=== PATIENT | male | born 1945 | race Caucasian/White ===

== ENCOUNTER → 2018-07-04 | Outpatient (CLI) | payer MEDICARE, OTHER ==
[~2018-07-04] MED LIST: ATORVASTATIN CA40 MG PO; CLONIDINE0.1; COREG25 MG; CYTOTEC200 MCG; FLOMAX0.4 MG PO; GLUCOPHAGE XR750 MG; LEVOTHYROXIN0.137 M1 PO; LISINOPRIL20 MG; MULTIVITAMINS1 EAC7 PO; NEURONTIN 300300 M1; PROSCAR 5MG TABL5 MG PO
== END ==
LOC: M.RAD 14:50
DX: R07.9 Chest pain, unspecified (principal); R05 Cough; R06.02 Shortness of breath

== ENCOUNTER → 2018-10-25 | Outpatient (CLI) | payer MEDICARE, OTHER | LOC: M.RAD 07:30 | DX: M16.0 Bilateral primary osteoarthritis of hip (principal); M47.896 Other spondylosis, lumbar region ==

== ENCOUNTER → 2019-01-23 | Outpatient (CLI) | payer MEDICARE, OTHER | LOC: M.CT 07:32 | DX: M16.12 Unilateral primary osteoarthritis, left hip (principal); M85.452 Solitary bone cyst, left pelvis ==

== ENCOUNTER → 2019-02-01 | Outpatient (CLI) | payer MEDICARE, OTHER | END | disposition home or self-care (01) | LOC: M.RAD 08:29 | DX: M25.552 Pain in left hip (principal); Z79.899 Other long term (current) drug therapy ==

== ENCOUNTER 2019-04-03 11:18 | Inpatient (IN) | payer MEDICARE, OTHER ==
[2019-03-22 08:54] LABS: ABSOLUTE EOSINOPHILS 0.2 thou/uL (0.0-0.7); ABSOLUTE LYMPHOCYTES 2.2 thou/uL (0.8-5.3); ABSOLUTE MONOCYTES 0.5 thou/uL (0.0-1.2); ABSOLUTE NEUTROPHILS 3.7 thou/uL (1.6-8.1); BASOPHILS 0.5 %; EOSINOPHILS 2.8 %; HEMATOCRIT 36.7 % (42.0-52.0); HEMOGLOBIN 12.8 gm/dL (14.0-18.0); LYMPHOCYTES 33.2 %; MCH 32.5 pg (26.0-34.0); MCHC 34.8 g/dL (28.0-37.0); MCV 93.3 fL (80.0-100.0); MONOCYTES 7.3 %; MPV 9.7 fl. (7.2-11.1); NUCLEATED RBCS 0 /100WBC; PLATELET COUNT* 135 thou/uL (150-400); POLYS 56.2 %; RBC 3.94 mil/uL (4.50-6.00); RDW-CV 13.1 % (10.5-14.5); WBC 6.6 thou/uL (4.0-11.0)
[2019-03-22 09:04] LABS: APTT 23.1 Seconds (25.0-31.3); PROTIME 9.9 Seconds (9.20-11.50)
[2019-03-22 09:08] LABS: ALBUMIN 3.7 g/dL (3.4-5.0); CALCIUM 8.7 mg/dL (8.5-10.1); CREATININE 1.4 mg/dL (0.6-1.3); TOTAL BILIRUBIN 0.3 mg/dL (<0.1-1.0); TOTAL PROTEIN 6.9 g/dL (6.4-8.2)
[2019-03-22 11:05] LABS: ESR (SEDRATE) 20 mm/hr (0-20)
--- NOTE | 2019-03-22 12:10 | EKG ---
[place] [address] ELECTROCARDIOGRAM REPORT Name: SHUKRI BARR Room: PRE IN [facility]#: [id number] Admission: Attend Phys: Hany Rivera Discharge: Date of : 49 Report #: [id number] THIS REPORT FOR: //name// [facility] Test Date: 2019-03-22 Test Time: 09:23:07 Pat Name: SHUKRI BARR Department: Room: Gender: M Scrap Baller: : 1945 Requested By: Alejandro Sosa Order Number: [id number] Ramon SADLER: Jl Sanon Measurements Intervals [place] Rate: 68 P: 38 AR: 164 QRS: 59 QRSD: 99 T: 61 QT: 383 QTc: 408 Interpretive Statements Sinus rhythm Borderline low voltage, extremity leads Compared to ECG 05/25/2016 08:40:11 ST (T wave) deviation no longer present Electronically Signed On 03-22-2019 12:09:54 CDT by Jl Sanon [email or web address] <ELECTRONICALLY SIGNED> By: Jl Sanon MD, [facility] 03/22/19 1209 D: [id number] 2 Jl Sanon MD, FACC /EPI
[2019-03-23 02:06] LABS: GLYCOHEMOGLOBIN (HGB A1C) 6.9 % (4.8-5.6)
[~2019-04-03] VITALS: Ht 193 cm; Wt 122.5 kg
--- NOTE | ~2019-04-03 | OP ---
[address] [address] OPERATIVE REPORT Name: SHUKRI BARR Room: [address] IN .R.#: [id number] Admission: 04/03/19 Attend Phys: Hany Rivera Discharge: Date of : 49 Report #: [id number] THIS REPORT FOR: //name// CC: Alejandro Pruitt PREOPERATIVE DIAGNOSIS: Left hip degenerative joint disease, advanced. POSTOPERATIVE DIAGNOSIS: Left hip degenerative joint disease, advanced. PROCEDURE: Left total hip arthroplasty. SURGEON: Alejandro Sosa DO CAM MILLING MACHINE OPERATOR: Beto Nathan DO. ANESTHESIA: General. ANTIBIOTICS: Ancef IV preoperatively. BLOOD LOSS: 450 mL. FLUIDS: 1450 mL lactated Ringer's. COMPLICATIONS: None. SPECIMENS: None. DRAINS: None. CONDITION: The patient is stable to PACU. IMPLANTS: Biomet G7 acetabular shell 62 mm with 2 appropriately sized screws. A 40 mm high wall E1 polyethylene Taperloc stem micro 20 x 125 standard offset ceramic 40 mm head with -6 neck adapter. INDICATIONS FOR PROCEDURE: The patient presented to [facility] for left total hip arthroplasty, seen him multiple times in clinic. He had an x-ray and CT scan evidence of degenerative joint disease, had a diagnostic injection with lidocaine and confirmed that he had relief of pain upon that. I went over with him treatment options, plan for surgery. The risks, benefits, and complications in detail at multiple visits. Please see the clinic notes for full details of our discussion we had at multiple visits including today. After addressing questions he had to his stated satisfaction with his , he acknowledged and accepted them and gave consent to proceed. [address] [address] OPERATIVE REPORT Name: MOMOSHUKRI Seun Room: [address] IN [facility].#: [id number] Admission: 04/03/19 Attend Phys: Hany Rivera Discharge: Date of : 49 Report #: [id number] DESCRIPTION OF PROCEDURE: I marked the left lower extremity in the presence of the operative team members. Everyone agreed this was correct. He was taken back to the operative suite where a briefing was performed indicating correct patient, procedure, site, antibiotics and implants were present and sterile. All team members agreed. He was then transferred over to the operating table in supine position. General anesthetic administered. He was well-padded and secured. The left lower extremity was sterilely prepped and draped in standard fashion. Timeout was performed indicating correct patient, procedure, site, antibiotics and implants were present and sterile. All team members agreed. Marked out our incision for an anterior approach, scalpel was taken through skin, dissection down protecting any neurovascular structures with blunt dissection. We were then on to the fascia. A secondary scalpel was used to incise this proximally and distally bluntly and identified the interval between sartorius and tensor fascia chicho, visualized the circumflex, vessels perforating, cauterized them with Aquamantys and cautery. Retractors were placed on the superior and inferior aspects of the neck. We then released the indirect head of the rectus and placed a retractor over the anterior brim of the acetabulum, carefully cauterized the capsule with Aquamantys and then electrocautery was used to perform anterior capsulectomy. Repositioned the retractors. We performed a neck cut one fingerbreadth above the lesser trochanter, removed the head and neck, sized on the back table to 55. We cleaned out the acetabulum for full visualization and began reaming. Our last reamer was 63. This had excellent grab. We had medialized appropriately to the teardrop, C-arm confirming that reamer was appropriate. We removed the reamer. Repositioned retractors. We had good punctate bleeding throughout the acetabulum and at that point in time, through the final size 64 G7 acetabular shell 3-hole after implant timeout performed, we removed two of the holes for screw placement. The screws holes will be positioned in the posterior superior quadrant. After irrigating out at full visualization, we then implanted the acetabular shell in its appropriate position. It should be confirmed that preoperative planning shows that he does have a multilevel fusion within his lower lumbar spine. I have talked to him preoperatively about how he is at increased risk for dislocation with his spine being fused and having stiffness in that area. We wanted to make sure that we accounted for this within his pelvis as it will not have the same rotation going from sitting to standing as if he had normal mobility in his spinal pelvic functionality. We therefore placed the cup in the appropriate amount of anteversion and inclination. Once we had confirmed this by direct visualization, external aiming guide and C-arm visualization, we had fully malleted this in. Cup had excellent grab and press-fit. It was well seated. We then removed the drilled, measured and placed 2 appropriately sized acetabular screws that had excellent purchase. C-arm confirmed excellent position of the cup and position of the screws. We then made sure that we had no soft tissue impingement through the final high wall vitamin E polyethylene for 40 mm head on to the back table. We placed the high wall in anterior and superior lateral position, malleted this into position and all tabs were flushed and it had engaged appropriately. At that point in [facility] [address] [place] [address] OPERATIVE REPORT Name: MOMOSHUKRI Seun Room: [address] IN M.R.#: [id number] Admission: 04/03/19 Attend Phys: Hany Rivera Discharge: Date of : 49 Report #: [id number] time, we then turned our attention to the femur. We only performed what releases were appropriate. Once we had visualization of the femur, we then gained access down the canal with a rat tail rasp and lateralize appropriately, rongeur for the shoulder, and then began broaching sequentially starting at a size 4 and working up to a size 20. The size 20 had excellent fit, fill and rotational stability. We trialed a -6. We reduced the hip, brought in C-arm, showed that the stem was excellent in regards to being well shouldered out. Excellent fit and fill. Our offset with a standard offset was excellent and equal to his contralateral hip. Shuck test showed that it was excellent as well. Leg lengths looked appropriate. He was potentially slightly long on our operative side, but we took him out of the boot and took his hip through full range of motion including deep extension and external rotation and also trying to recreate him going from a sitting to a seated position and there was no instability of the hip whatsoever in any plane or any force applied to the hip joint. At that point in time, we then reengaged the boot to the table, changed gloves, thoroughly irrigated with normal saline, dislocated the hip, removed all trial components. The final size 20 stem was thrown on to the back table, irrigated down the canal with normal saline and implanted the final size 20 stem. It sat at the exact same location as our trial. We therefore threw the final -6 adapter and 40 mm head engaged the Meza taper, malleted into position confirmed that all components were in place. We then reduced the hip. Final C-arm imaging showed excellent placement of all components, no obvious evidence of fracture or dislocation. Again, we took his leg into full external rotation and deep extension and then the remaining range of motion was taken throughout with all forces applied. There was no instability that could be found whatsoever. We reengaged the boot to the table, changed gloves again and then reirrigated with normal saline, injected our orthopedic cocktail, irrigated again with normal saline and then closed our fascial layer fully proximally and distally with 0 Vicryl [id number] interrupted and oversewn with #1 Stratafix. Subcutaneous and skin were closed with 2-0 Monocryl buried deep and a running subcuticular stitch with Stratafix and Dermabond glue over the skin. Debriefing performed where we confirmed procedure, blood loss and all counts were correct and final. All team members agreed. Sterile silver impregnated dressing was applied. The patient was extubated and transferred off the operating table, taken to PACU, stable. POSTOPERATIVE COURSE AND EVALUATION: I spoke with his , addressed any questions she had to their stated satisfaction. She was very thankful for my time and efforts. He was resting in the PACU with stable vital signs, pain controlled, neurovascularly intact in all extremities, with no deficits. No change compared to preoperative exams. Compartments are soft and compressible. Dressing clean, dry and intact. PACU films showed stable hip with no obvious evidence of fracture or dislocation and components were in excellent position. Weightbear as tolerated. PT, OT anterior approach with no precautions. DVT prophylaxis will be pharmacological and mechanical, admitted to the medical service and I have already spoken with the team and encouraged the [facility] and [address] [address] OPERATIVE REPORT Name: SHUKRI BARR Room: [facility] IN [facility]#: [id number] Admission: 04/03/19 Attend Phys: Hayn Rivera Discharge: Date of : 49 Report #: [id number] nursing staff and physical therapy teams to call anytime with questions or concerns. It should be noted that I have also discussed this case with my partners who will be at this hospital, the remaining aspects of the week in case I am not able to make out here for rounds. I will be updating this not only with the residents but also with my partners as well who I have signed out to. Again, I have encouraged them to call me anytime with questions or concerns and the family is aware of this and they are okay with my partners covering for me if I am unable to make it back out to the hospital. By: [id number] Sosa DO /mckinley
[~2019-04-03 11:18] MED LIST changes: +ACCUNEB SO1.25 MG/1 INH; -ATORVASTATIN CA40 MG PO; +COZAAR 25 MG TA25 M1 PO; +LIPITOR40 MG PO; +NORCO 7.5-3251 EACH PO; +VENTOLIN HFA 1818 GM INH
[2019-04-03] MEDS ORDERED: SPIRIVA INH (12:09)
[2019-04-03 19:50] VITALS: BP 185/96
[2019-04-04] VITALS: BP 151/59
[2019-04-04 04:06] VITALS: BP 123/63
[2019-04-04 04:59] LABS: HEMATOCRIT 31.4 % (42.0-52.0); HEMOGLOBIN 10.5 gm/dL (14.0-18.0)
[2019-04-04 07:25] VITALS: BP 146/74
[2019-04-04] MEDS ORDERED: ELIQUIS2.5 MG PO (10:47)
[2019-04-04 10:50] VITALS: BP 146/74
[2019-04-04] MEDS ORDERED: ASPIRIN325 PO (11:53)
[2019-04-04] MEDS ORDERED: LEVOXYL137 MCG PO (13:12)
[2019-04-04 14:29] VITALS: BP 146/74
== END 2019-04-04 14:30 | disposition home health service (06) | DRG 470 ==
LOC: M.PRE 11:18 → M.TBA 11:32 → M.ORTHSURG 11:32 → M.PRE 12:48 → M.ORTHSURG 18:46
PROVIDERS: Orthopaedic Surgery; ADMIT Internal Medicine
PROC: 0SRB03Z Replacement of Left Hip Joint with Ceramic Synthetic Substitute, Open Approach (ICD-10-PCS; principal; 2019-04-03)
DX: M16.12 Unilateral primary osteoarthritis, left hip (principal); D62 Acute posthemorrhagic anemia; I10 Essential (primary) hypertension; E78.5 Hyperlipidemia, unspecified; E11.42 Type 2 diabetes mellitus with diabetic polyneuropathy; N40.0 Benign prostatic hyperplasia without lower urinary tract symptoms; E03.9 Hypothyroidism, unspecified; J43.9 Emphysema, unspecified; Z87.891 Personal history of nicotine dependence

== ENCOUNTER → 2019-05-16 | Outpatient (CLI) | payer MEDICARE, OTHER ==
[~2019-05-16] MED LIST changes: +ASPIRIN325 PO; +ELIQUIS2.5 MG PO; +LEVOXYL137 MCG PO; +SPIRIVA INH
== END ==
LOC: M.ULTRA 12:30
DX: M79.89 Other specified soft tissue disorders (principal)

== ENCOUNTER → 2019-09-06 | Outpatient (CLI) | payer MEDICARE, OTHER ==
[2019-09-06 08:36] LABS: ALBUMIN 3.9 g/dL (3.4-5.0); CALCIUM 8.5 mg/dL (8.5-10.1); CREATININE 1.6 mg/dL (0.6-1.3); POTASSIUM 4.2 mmol/L (3.5-5.1); TOTAL BILIRUBIN 0.4 mg/dL (<0.1-1.0); TOTAL PROTEIN 7.5 g/dL (6.4-8.2)
[2019-09-06 14:09] LABS: IgA 304 mg/dL (61-437); IgG 1049 mg/dL (700-1600)
[2019-09-06 20:34] LABS: HEMATOCRIT 37.3 % (42.0-52.0); HEMOGLOBIN 12.5 gm/dL (14.0-18.0); MCH 30.7 pg (26.0-34.0); MCHC 33.6 g/dL (28.0-37.0); MCV 91.4 fL (80.0-100.0); MPV 10.7 fl. (7.2-11.1); RBC 4.08 mil/uL (4.50-6.00); RDW-CV 14.4 % (10.5-14.5); WBC 6.4 thou/uL (4.0-11.0)
[2019-09-11 06:06] LABS: ANTI-SSA <0.2 AI (0.0-0.9)
[2019-09-11 13:42] LABS: ANA INTERPRETATION Negative (Negative); IgM 47 mg/dL (15-143)
== END ==
LOC: M.LAB 07:57
PROVIDERS: Psychiatry & Neurology Neuromuscular Medicine
DX: G62.9 Polyneuropathy, unspecified (principal); R20.2 Paresthesia of skin; R29.898 Other symptoms and signs involving the musculoskeletal system; R29.2 Abnormal reflex; Z86.39 Personal history of other endocrine, nutritional and metabolic disease

== ENCOUNTER → 2019-10-02 | Outpatient (CLI) | payer MEDICARE, OTHER ==
[2019-10-02 10:19] LABS: ABSOLUTE EOSINOPHILS 0.2 thou/uL (0.0-0.7); ABSOLUTE LYMPHOCYTES 1.8 thou/uL (0.8-5.3); ABSOLUTE MONOCYTES 0.8 thou/uL (0.0-1.2); ABSOLUTE NEUTROPHILS 4.1 thou/uL (1.6-8.1); BASOPHILS 0.4 %; EOSINOPHILS 2.7 %; HEMATOCRIT 35.4 % (42.0-52.0); HEMOGLOBIN 12.2 gm/dL (14.0-18.0); LYMPHOCYTES 26.1 %; MCH 31.2 pg (26.0-34.0); MCHC 34.4 g/dL (28.0-37.0); MCV 90.8 fL (80.0-100.0); MONOCYTES 11.3 %; MPV 9.5 fl. (7.2-11.1); NUCLEATED RBCS 0 /100WBC; PLATELET COUNT* 158 thou/uL (150-400); POLYS 59.5 %; RDW-CV 15.1 % (10.5-14.5); WBC 6.9 thou/uL (4.0-11.0)
[2019-10-02 10:44] LABS: PROTIME 10.1 Seconds (9.20-11.50)
[2019-10-02 11:45] VITALS: BP 132/74
[2019-10-02 12:41] LABS: CSF CLARITY CLEAR; CSF COLOR COLORLESS; VOLUME 6 ml
[2019-10-02 12:47] LABS: CSF GLUCOSE 92 mg/dl (40-70); CSF PROTEIN 152.2 mg/dl (15-45)
[2019-10-02 14:05] VITALS: BP 148/80
[2019-10-02 14:07] LABS: CSF RBC 2 /mm3; CSF WBC 5 /mm3 (0-10)
[2019-10-05 12:09] LABS: CSF ALBUMIN 115 mg/dL (11-48); CSF IGG INDEX 0.6 (0.0-0.7); CSF IgG 13.8 mg/dL (0.0-8.6); CSF/SERUM ALBUMIN INDEX 27 (0-8)
== END | disposition home or self-care (01) ==
LOC: M.RAD 09-28 12:32
PROVIDERS: Psychiatry & Neurology Neuromuscular Medicine
DX: R53.1 Weakness (principal); I10 Essential (primary) hypertension; J43.9 Emphysema, unspecified; E03.9 Hypothyroidism, unspecified; E78.5 Hyperlipidemia, unspecified; E11.9 Type 2 diabetes mellitus without complications; N40.0 Benign prostatic hyperplasia without lower urinary tract symptoms; G62.9 Polyneuropathy, unspecified; Z98.890 Other specified postprocedural states; Z79.899 Other long term (current) drug therapy; Z79.01 Long term (current) use of anticoagulants

== ENCOUNTER → 2019-10-29 | Outpatient (CLI) | payer MEDICARE, OTHER ==
[~2019-10-29] MED LIST changes: +AMLODIPINE BESY10 MG PO; +HYDROCHLOROTHIA25 M1 PO
[2019-10-29 07:20] VITALS: BP 179/70
[2019-10-29 08:06] LABS: ABSOLUTE EOSINOPHILS 0.2 thou/uL (0.0-0.7); ABSOLUTE LYMPHOCYTES 1.9 thou/uL (0.8-5.3); ABSOLUTE MONOCYTES 0.5 thou/uL (0.0-1.2); ABSOLUTE NEUTROPHILS 4.7 thou/uL (1.6-8.1); BASOPHILS 0.4 %; EOSINOPHILS 2.5 %; HEMATOCRIT 36.2 % (42.0-52.0); HEMOGLOBIN 12.2 gm/dL (14.0-18.0); LYMPHOCYTES 26.1 %; MCH 30.6 pg (26.0-34.0); MCHC 33.7 g/dL (28.0-37.0); MCV 90.9 fL (80.0-100.0); MONOCYTES 7.4 %; MPV 9.1 fl. (7.2-11.1); NUCLEATED RBCS 0 /100WBC; PLATELET COUNT* 169 thou/uL (150-400); POLYS 63.6 %; RBC 3.98 mil/uL (4.50-6.00); RDW-CV 15.1 % (10.5-14.5); WBC 7.4 thou/uL (4.0-11.0)
[2019-10-29 08:09] LABS: ALBUMIN 3.5 g/dL (3.4-5.0); CALCIUM 8.5 mg/dL (8.5-10.1); CREATININE 1.4 mg/dL (0.6-1.3); POTASSIUM 4.3 mmol/L (3.5-5.1); TOTAL BILIRUBIN 0.4 mg/dL (<0.1-1.0); TOTAL PROTEIN 7.3 g/dL (6.4-8.2)
[2019-10-29 09:20] VITALS: BP 158/74
[2019-10-29 11:30] VITALS: BP 157/82
[2019-10-29 13:30] VITALS: BP 175/72
--- NOTE | 2019-10-29 13:59 | NUR ---
LAB RESULTS CALLED TO DR. CANDELARIA NEW ORDER RECIEVED TO DRAW CMP PRIOR TO THIRD INFUSION AND INSTRUCT PT TO DRINK EXTRA WATER DAILY. INFUSION COMPLETED AND TOLERATED WELL. DISCHARGE INSTRUCTION REVIEWED.
== END ==
LOC: M.INFUS 06:48
PROVIDERS: Psychiatry & Neurology Neuromuscular Medicine
DX: G61.81 Chronic inflammatory demyelinating polyneuritis (principal); J44.9 Chronic obstructive pulmonary disease, unspecified

== ENCOUNTER → 2019-10-30 | Outpatient (CLI) | payer MEDICARE, OTHER ==
[2019-10-30 07:15] VITALS: BP 136/92
== END ==
LOC: M.INFUS 04:45
DX: G61.81 Chronic inflammatory demyelinating polyneuritis (principal)

== ENCOUNTER → 2019-10-31 | Outpatient (CLI) | payer MEDICARE, OTHER ==
[2019-10-31 07:39] LABS: CALCIUM 8.4 mg/dL (8.5-10.1); CREATININE 1.4 mg/dL (0.6-1.3); POTASSIUM 4.3 mmol/L (3.5-5.1)
[2019-10-31 07:49] LABS: ALBUMIN 3.4 g/dL (3.4-5.0); TOTAL BILIRUBIN 0.5 mg/dL (<0.1-1.0); TOTAL PROTEIN 8.5 g/dL (6.4-8.2)
[2019-10-31 08:00] VITALS: BP 132/67
[2019-10-31 10:00] VITALS: BP 140/78
[2019-10-31 12:30] VITALS: BP 132/68
== END ==
LOC: M.INFUS 04:48
PROVIDERS: Psychiatry & Neurology Neuromuscular Medicine
DX: G61.81 Chronic inflammatory demyelinating polyneuritis (principal)

== ENCOUNTER → 2019-11-01 | Outpatient (CLI) | payer MEDICARE, OTHER ==
[2019-11-01 07:20] VITALS: BP 131/64
== END ==
LOC: M.INFUS 05:28
DX: G61.81 Chronic inflammatory demyelinating polyneuritis (principal)

== ENCOUNTER → 2019-11-02 | Outpatient (CLI) | payer MEDICARE, OTHER ==
[2019-11-02 07:50] VITALS: BP 135/60
[2019-11-02 11:30] VITALS: BP 132/72
[2019-11-02 12:35] VITALS: BP 140/70
--- NOTE | 2019-11-02 12:56 | NUR ---
INFUSION COMPLETED AND TOLERATED WELL. DENIES QUESTSIONS OR NEEDS AT DISCHARGE.
== END ==
LOC: M.INFUS 01:57
DX: G61.81 Chronic inflammatory demyelinating polyneuritis (principal); J44.9 Chronic obstructive pulmonary disease, unspecified

== ENCOUNTER → 2020-02-11 | Outpatient (CLI) | payer MEDICARE, OTHER ==
[2020-02-11 08:58] LABS: CALCIUM 8.3 mg/dL (8.5-10.1); CREATININE 1.7 mg/dL (0.6-1.3); POTASSIUM 4.3 mmol/L (3.5-5.1)
== END ==
LOC: M.LAB 07:57
PROVIDERS: ATTEND Nurse Practitioner
DX: E03.9 Hypothyroidism, unspecified (principal); R60.0 Localized edema